=== PATIENT | male | born 1940 | race Hispanic/Latino ===

== ENCOUNTER 2018-08-05 16:33 | Inpatient (IN) | payer MEDICARE, SELFPAY | END 2018-08-12 16:58 | DRG 853 | PROVIDERS: Admitting Provider Internal Medicine; Emergency Provider Emergency Medicine; PCP Family Medicine; Visit Provider Internal Medicine | DX: A41.9 Sepsis, unspecified organism (principal); R65.21 Severe sepsis with septic shock; E87.2 Acidosis; E87.3 Alkalosis; N17.9 Acute kidney failure, unspecified; N13.8 Other obstructive and reflux uropathy; F02.81 Dementia in other diseases classified elsewhere, unspecified severity, with behavioral disturbance; E46 Unspecified protein-calorie malnutrition; G10 Huntington's disease; R64 Cachexia; Z68.1 Body mass index [BMI] 19.9 or less, adult; N30.20 Other chronic cystitis without hematuria; Z28.21 Immunization not carried out because of patient refusal; R68.0 Hypothermia, not associated with low environmental temperature; R33.9 Retention of urine, unspecified; N40.1 Benign prostatic hyperplasia with lower urinary tract symptoms; E11.9 Type 2 diabetes mellitus without complications; R09.02 Hypoxemia; Z86.73 Personal history of transient ischemic attack (TIA), and cerebral infarction without residual deficits; Z79.84 Long term (current) use of oral hypoglycemic drugs; Z85.048 Personal history of other malignant neoplasm of rectum, rectosigmoid junction, and anus; Z87.440 Personal history of urinary (tract) infections; M48.00 Spinal stenosis, site unspecified; E78.5 Hyperlipidemia, unspecified; I25.10 Atherosclerotic heart disease of native coronary artery without angina pectoris; R13.10 Dysphagia, unspecified; I10 Essential (primary) hypertension; B96.20 Unspecified Escherichia coli [E. coli] as the cause of diseases classified elsewhere; N31.2 Flaccid neuropathic bladder, not elsewhere classified; E86.0 Dehydration; I25.2 Old myocardial infarction | CPT/HCPCS: 36415; 36430; 36600; 36680; 43246; 51702; 70450; 71045; 72072; 76775; 80048; 80053; 80076; 80202; 81001; 82140; 82274; 82565; 82805; 83605; 83690; 83735; 84100; 84132; 84484; 85014; 85018; 85025; 85027; 85049; 85610; 86141; 86850; 86900; 86901; 86920; 87040; 87076; 87077; 87081; 87086; 87088; 87186; 88305; 92610; 93005; 96361; 96365; 99291; A9270; C1751; C1757; C9113; J0360; J0610; J0690; J0692; J0696; J1815; J2704; J3010; J3370; J3480; J7030; J7120; P9016 ==